=== PATIENT | female | born 1950 | race Caucasian/White ===

== ENCOUNTER 2016-08-17 11:27 | Outpatient (RCR) | payer MEDICARE ==
--- NOTE | 2016-09-14 08:05 | RADONC ---
RADIATION ONCOLOGY TREATMENT SUMMARY DATE: 09/13/2016 DIAGNOSIS: Left breast cancer. STAGE: 1A, [id number]. ECOG PERFORMANCE STATUS: 0. TREATMENT SUMMARY: Ms. 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 We treated the patient to her left breast for a total dose of 4005 cGy delivered in 15 fractions of 266.7 cGy each. The patient was treated over 20 elapsed days from 08/24/2016 through 09/13/2016. The patient was treated on the linear accelerator utilizing 3-D conformal technique with a combination of 6X of 18X photons. Ms. Ko tolerated her treatments quite well with no difficulties related to her radiation therapy. She was able complete therapy as prescribed without interruption. I have scheduled the patient to see me again in 1 month for further followup. She will also continue to be followed by her other physicians as well. cc: MD Azar Corona MD *REN Mccann
== END 2016-09-14 ==
LOC: M ONCR 11:27
PROVIDERS: ATTEND Radiology Radiation Oncology
DX: C50.412 Malignant neoplasm of upper-outer quadrant of left female breast (principal)

== ENCOUNTER → 2016-09-24 | Outpatient (REF) | payer MEDICARE ==
[2016-09-24 13:49] LABS: PERCENT SATURATION 36.8 % (13.2-37.4)
== END ==
LOC: M LAB REF 12:50
PROVIDERS: ATTEND Internal Medicine Medical Oncology
DX: C50.919 Malignant neoplasm of unspecified site of unspecified female breast (principal)

== ENCOUNTER → 2016-10-13 | Outpatient (CLI) | payer MEDICARE ==
--- NOTE | 2016-10-15 13:16 | RADONC ---
RADIATION ONCOLOGY FOLLOWUP NOTE DATE: 10/13/2016 CHART NUMBER: [id number] DIAGNOSIS: Left breast cancer. STAGE: IA, [id number]. ECOG PERFORMANCE STATUS: 0 FOLLOWUP NOTE: Adia Ko is a very pleasant, 66-year-old white female with the diagnosis of a stage IA, [id number] well-differentiated infiltrating ductal carcinoma of the left breast who is presenting to us today for routine followup visit 1 month post completion of external beam radiation therapy. The patient presents today reporting that she is doing quite well with no complaints at this time related to her radiation therapy or disease. She has no breast or bone pain. REVIEW OF SYSTEMS: The patient's review of systems is noncontributory. Denies nausea, vomiting, fevers, chills, night sweats, diplopia, headaches, anxiety or depression, anorexia, weight loss, visual disturbances, chest pain, urinary or bowel difficulties, bone pain, or neurological problems. PHYSICAL EXAMINATION: The patient is a well-developed, well-nourished, 66-year-old female, in no acute distress. HEENT exam is normocephalic, atraumatic. Extraocular movements are intact. There is no palpable cervical, supraclavicular, infraclavicular, axillary, or inguinal lymphadenopathy present. Lungs are clear to auscultation and percussion. Heart has a regular rate and rhythm. Abdomen is benign with no hepatosplenomegaly, masses, or tenderness. Breast examination reveals no masses or discharge bilaterally. Skeletal examination reveals no tenderness to pressure or percussion of the bony skeleton. Extremities reveal no clubbing, cyanosis, or edema. Neurologic exam is grossly intact, as is the remainder of the physical examination. ASSESSMENT: The patient is clinically DEIRDRE at this time and will be seen by us again in 6 months for further followup. She will also continue to be followed by her other physicians as well. cc: MD Azar Corona MD
== END ==
LOC: M ONCR 10:57
PROVIDERS: ATTEND Radiology Radiation Oncology
DX: C50.412 Malignant neoplasm of upper-outer quadrant of left female breast (principal)

== ENCOUNTER → 2018-11-02 | Outpatient (CLI) | payer MEDICARE ==
[~2018-11-02] MED LIST: ASPI1TAB PO; CALC600T60 PO; INCR1INH; IPRA0.00 NEB; LETR2.5T2 PO; LOSA50TA88 PO; PRED5TA PO; SYMB16INH INH; VENTAER IN; VERA24TASA PO
--- NOTE | 2018-11-02 13:25 | REP ---
Low-dose noncontrast chest CT screening study for lung cancer. History: Personal history of nicotine dependence. No comparison chest imaging. 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 The lungs are hyperinflated. There is mild pleuroparenchymal fibrosis in the lingula and right middle lobe anteriorly. No pleural effusion is seen. Emphysematous changes are noted in the upper lobes bilaterally. Vascular calcifications noted. There are surgical clips in the left axilla. There is diffuse skin thickening and some stromal thickening in the left breast. This patient has a history of prior left breast carcinoma. Impression: Lung RADS category II benign findings. Evidence of COPD. Repeat screening exam suggested 1 year. Electronically Signed by Chiki Galeano MD 11/02/2018 01:17 P
== END ==
LOC: M RAD 12:47
PROVIDERS: ATTEND Internal Medicine Medical Oncology
DX: Z12.2 Encounter for screening for malignant neoplasm of respiratory organs (principal); Z87.891 Personal history of nicotine dependence; J84.10 Pulmonary fibrosis, unspecified; Z85.3 Personal history of malignant neoplasm of breast

== ENCOUNTER → 2019-08-21 | Outpatient (REF) | payer MEDICARE ==
[~2019-08-21] MED LIST changes: -ASPI1TAB PO; +ASPI81TA26 PO
[2019-08-21 14:01] LABS: ALBUMIN 3.8 GM/DL (3.2-5.2); CALCIUM LEVEL 9.9 MG/DL (8.8-10.2); CREATININE FOR GFR 1.63 MG/DL (0.55-1.30); GLOMERULAR FILTRATION RATE 33.1 (>39); PHOSPHORUS LEVEL 4.3 MG/DL (2.5-4.9); POTASSIUM SERUM 4.3 MEQ/L (3.5-5.1)
== END ==
LOC: M LAB REF 12:42
PROVIDERS: ATTEND Nurse Practitioner Family
DX: N18.3 Chronic kidney disease, stage 3 (moderate) (principal)

== ENCOUNTER → 2019-12-06 | Outpatient (CLI) | payer MEDICARE ==
--- NOTE | 2019-12-06 14:14 | REP ---
LOW DOSE LUNG SCREENING CT: Low dose lung screen CT performed in the axial plane. No IV contrast was administered. COMPARISON: 11/06/2018. There are emphysematous changes bilaterally as well as scattered interstitial fibrotic scarring. No suspicious nodular opacity is seen. There is no consolidation. Calcified right hilar lymph nodes are present. The heart is normal in size. There is some calcification of the thoracic aorta without aneurysm. No mediastinal contour abnormality is seen. There are degenerative changes of the spine. Again noted is stromal thickening of the left breast diffusely, unchanged, patient has a history of left breast cancer. IMPRESSION: Lung RADS category 2 benign findings. Chronic changes as above. No suspicious nodular opacity. Followup exam recommended in 1 year. Electronically Signed by Shiv Dickerson MD 12/06/2019 02:45 P
== END ==
LOC: M RAD 12:13
PROVIDERS: ATTEND Internal Medicine Medical Oncology
DX: Z12.2 Encounter for screening for malignant neoplasm of respiratory organs (principal); Z87.891 Personal history of nicotine dependence; Z85.3 Personal history of malignant neoplasm of breast; I70.0 Atherosclerosis of aorta

== ENCOUNTER → 2019-12-20 | Outpatient (REF) | payer MEDICARE ==
[2019-12-20 17:30] LABS: ALBUMIN 3.8 GM/DL (3.2-5.2); BILIRUBIN,TOTAL 0.2 MG/DL (0.2-1.0); CALCIUM LEVEL 9.5 MG/DL (8.8-10.2); CREATININE FOR GFR 1.69 MG/DL (0.55-1.30); GLOMERULAR FILTRATION RATE 31.8 (>39); POTASSIUM SERUM 5.5 MEQ/L (3.5-5.1)
== END ==
LOC: M LAB REF 16:34
PROVIDERS: ATTEND Nurse Practitioner Family
DX: C50.919 Malignant neoplasm of unspecified site of unspecified female breast (principal)

== ENCOUNTER → 2020-04-23 | Outpatient (REF) | payer MEDICARE ==
[2020-04-23 19:38] LABS: PERCENT SATURATION 4.7 % (13.2-45.0)
== END ==
LOC: M LAB REF 16:42
PROVIDERS: ATTEND Nurse Practitioner Family
DX: D50.9 Iron deficiency anemia, unspecified (principal); N39.0 Urinary tract infection, site not specified

== ENCOUNTER 2020-05-02 11:44 | Outpatient (CLI) | payer MEDICARE ==
[~2020-05-02] VITALS: Ht 149.9 cm; Wt 47.7 kg
[~2020-05-02 11:44] MED LIST changes: +NS 1,000 ML IV SCH
[2020-05-02 12:00] VITALS: BP 155/71
[2020-05-02] MEDS ORDERED: NS IV ONE (12:00)
[2020-05-02] MEDS ORDERED: FERRIC CARBOXYMALTOSE IV ONE (12:00)
[2020-05-02 14:28] VITALS: BP 118/55
[2020-05-02 15:00] VITALS: BP 134/67
[2020-06-05] MEDS ORDERED: LETR2.5T2 PO (07:59)
== END 2020-05-02 15:00 | disposition home or self-care (01) ==
LOC: M INFU 11:44
PROVIDERS: ATTEND Internal Medicine Nephrology
DX: D50.9 Iron deficiency anemia, unspecified (principal)
CPT/HCPCS: 96365; 96366; J1439

== ENCOUNTER 2020-05-09 11:40 | Outpatient (CLI) | payer MEDICARE ==
[~2020-05-09] VITALS: Ht 175.3 cm; Wt 47.7 kg
[~2020-05-09 11:40] MED LIST changes: -NS 1,000 ML IV SCH
[2020-05-09] MEDS ORDERED: EPINEPHrine INJ 1 MG/ML 1ML AMP IM PRN (12:00)
[2020-05-09] MEDS ORDERED: NS 1,000 ML IV SCH (12:00)
[2020-05-09] MEDS ORDERED: NS IV ONE (12:00)
[2020-05-09] MEDS ORDERED: ALBUTEROL SULFATE 2.5 MG/0.5 ML INH NEB SOLN INH PRN (12:00)
[2020-05-09] MEDS ORDERED: diphenhydrAMINE 50MG/ML VIAL (J1200) IV PRN (12:00)
[2020-05-09] MEDS ORDERED: FERRIC CARBOXYMALTOSE IV ONE (12:00)
[2020-05-09] MEDS ORDERED: methylPREDNISolone 125MG 2ML VIAL IV PRN (12:00)
[2020-05-09 13:43] VITALS: BP 103/55
[2020-05-09 14:35] VITALS: BP 124/58
[2020-05-09 15:28] VITALS: BP 119/59
[2020-06-05] MEDS ORDERED: LETR2.5T2 PO (07:59)
== END 2020-05-09 15:30 | disposition home or self-care (01) ==
LOC: M INFU 11:40
PROVIDERS: ATTEND Internal Medicine Nephrology
DX: D50.9 Iron deficiency anemia, unspecified (principal)
CPT/HCPCS: 96365; 96366; J1439

== ENCOUNTER → 2020-12-24 | Outpatient (REF) | payer MEDICARE ==
[2020-12-24 17:50] LABS: PERCENT SATURATION 41.2 % (13.2-45.0)
== END ==
LOC: M LAB REF 16:53
PROVIDERS: ATTEND Nurse Practitioner Family
DX: D50.9 Iron deficiency anemia, unspecified (principal)

== ENCOUNTER 2021-08-30 09:57 | Inpatient (IN) | payer MEDICARE ==
[~2021-08-30] VITALS: Ht 149.9 cm; Wt 44.4 kg
[~2021-08-30 09:57] MED LIST changes: +ENOXAPARIN 30MG/0.3ML SYRINGE (J1650 PER 10MG) SC SCH; -INCR1INH; +INCR1INH INH; +LOSA50TA28 PO; -LOSA50TA88 PO; +SYMBICORT 160/4.5MCG INHALER 6GM INH SCH; -VENTAER IN; +VENTAER INH; +VERA240T65 PO; -VERA24TASA PO
[2021-08-30] MEDS ORDERED: methylPREDNISolone 125MG 2ML VIAL IV ONE (10:15)
[2021-08-30 10:25] LABS: ABG BASE EXCESS 9.1 (-2.0-2.0); ABG HCO3 35.7 MEQ/L (22.0-26.0); ABG PARTIAL PRESSURE O2 114.7 mmHg (75.0-100.0); ABG STANDARD HCO3 32.8 MEQ/L (22.0-26.0); ABG TOTAL CO2 37.6 MEQ/L (23.0-31.0); ABG pH (ARTERIAL) 7.382 UNITS (7.350-7.450)
[2021-08-30 10:28] LABS: ABG PARTIAL PRESSURE CO2 61.4 mmHg (35.0-45.0)
[2021-08-30 11:15] LABS: BASO # 0.1 10^3/uL (0.0-0.2); BASO % 0.9 % (0.0-1.0); EOS # 0.6 10^3/uL (0.0-0.5); EOS % 3.7 % (0.0-3.0); HEMATOCRIT 33.6 % (36.0-47.0); HEMOGLOBIN 10.3 g/dl (12.0-15.5); LYMPH # 0.4 10^3/uL (1.5-5.0); LYMPH % 2.6 % (24.0-44.0); MEAN CORPUSCULAR HGB CONC 30.7 g/dl (32.0-36.5); MEAN CORPUSCULAR VOLUME 101.2 fl (80.0-96.0); MONO # 0.3 10^3/uL (0.0-0.8); MONO % 2.1 % (2.0-8.0); NEUTROPHILS # 13.5 10^3/uL (1.5-8.5); NEUTROPHILS % 90.3 % (36.0-66.0); PLATELET COUNT, AUTOMATED 544 10^3/uL (150-450); RED BLOOD COUNT 3.32 10^6/uL (4.00-5.40); WHITE BLOOD COUNT 14.9 10^3/uL (4.0-10.0)
[2021-08-30 11:41] LABS: MB/CK RELATIVE INDEX 5.59 (< OR =4)
[2021-08-30] MEDS ORDERED: ASPIRIN 325 MG TAB PO ONE (11:55)
[2021-08-30 12:00] LABS: BILIRUBIN,DIRECT 0.1 MG/DL (0.0-0.2); BILIRUBIN,TOTAL 0.2 MG/DL (0.2-1.0); CALCIUM LEVEL 10.4 MG/DL (8.8-10.2); CREATININE FOR GFR 1.24 MG/DL (0.55-1.30); FREE T4 1.13 NG/DL (0.76-1.46); GLOMERULAR FILTRATION RATE 45.1 (>39); POTASSIUM SERUM 5.4 MEQ/L (3.5-5.1); THYROID STIMULATING HORMONE 0.882 uIU/ML (0.358-3.740)
[2021-08-30] MEDS ORDERED: ISOVUE-370 76% 100ML VIAL As Ordered ONE (12:14)
[2021-08-30 12:46] LABS: CK-MB VALUE MASS 7.4 NG/ML (<3.6); MB/CK RELATIVE INDEX 5.52 (< OR =4)
[2021-08-30] MEDS ORDERED: ALBUTEROL SULFATE 2.5 MG/0.5 ML INH NEB SOLN NEB PRN (13:15)
[2021-08-30] MEDS ORDERED: FUROSEMIDE 40MG/4ML VIAL (J1940) IV ONE (13:15)
[2021-08-30] MEDS ORDERED: IPRATROPIUM 0.5MG/ALBUTEROL 2.5MG INH SOL UD 3ML (DUONEB) NEB ONE (13:20)
[2021-08-30 13:57] LABS: INR 0.91; PARTIAL THROMBOPLASTIN TIME 29.7 SECONDS (25.9-37.0); PROTHROMBIN TIME 12.7 SECONDS (12.7-14.5)
[2021-08-30] MEDS ORDERED: ASPI81TA26 PO (14:04)
[2021-08-30] MEDS ORDERED: DOCU100C16 PO (14:06)
[2021-08-30] MEDS ORDERED: HOME MED LIST COMPLETE! XX SCH (14:10)
[2021-08-30] MEDS ORDERED: DOCUSATE SODIUM 100MG CAPSULE PO PRN (14:50)
[2021-08-30] MEDS ORDERED: NITROGLYCERIN 0.4 MG SUBL TABLET SL PRN (14:55)
[2021-08-30] MEDS ORDERED: MORPHINE 2 MG/ML 1ML VIAL (J2270) IV PRN (14:55)
[2021-08-30] MEDS ORDERED: LevoFLOXacin IV 500 MG in IV 1 EA IV ONE (15:10)
[2021-08-30] MEDS: IPRATROPIUM 0.5MG/ALBUTEROL 2.5MG INH SOL UD 3ML (DUONEB) NEB SCH ×2 (16:00→19:50)
[2021-08-30 16:10] VITALS: BP 116/59
[2021-08-30] MEDS ORDERED: LevoFLOXacin IV 750 MG in IV 1 EA IV SCH (17:00)
[2021-08-30] MEDS: methylPREDNISolone 125MG 2ML VIAL IV SCH (17:00)
[2021-08-30] MEDS: SYMBICORT 160/4.5MCG INHALER 6GM INH SCH (19:50)
[2021-08-30] MEDS ORDERED: SYMBICORT 160/4.5MCG INHALER 6GM INH SCH (20:00)
[2021-08-30] MEDS: ANALGESIC BALM CRM 3OZ TOP SCH (21:00)
[2021-08-30] MEDS ORDERED: COMBIVENT RESPIMAT 100-20MCG INHALER 4GM INH SCH (21:00)
[2021-08-30 22:10] VITALS: BP 103/59
[2021-08-31] MEDS: methylPREDNISolone 125MG 2ML VIAL IV SCH ×2 (01:07→08:41)
[2021-08-31] MEDS ORDERED: diphenhydrAMINE 25MG CAP PO ONE (02:55)
[2021-08-31] MEDS ORDERED: RAMELTEON 8 MG TAB (ROZEREM) PO PRN (02:55)
[2021-08-31] MEDS: ACETAMINOPHEN TAB 650MG DOSE (2X325MG) PO PRN ×3 (03:51→21:45)
[2021-08-31] MEDS ORDERED: NICOTINE 21MG/24HR 1 EA TRANSDERMAL TD SCH (05:00)
[2021-08-31 06:10] VITALS: BP 133/64
[2021-08-31 06:54] LABS: HEMATOCRIT 25.2 % (36.0-47.0); MEAN CORPUSCULAR HEMOGLOBIN 31.3 pg (27.0-33.0); MEAN CORPUSCULAR HGB CONC 32.1 g/dl (32.0-36.5); MEAN CORPUSCULAR VOLUME 97.3 fl (80.0-96.0); RED BLOOD COUNT 2.59 10^6/uL (4.00-5.40); WHITE BLOOD COUNT 9.9 10^3/uL (4.0-10.0)
[2021-08-31 07:01] LABS: HEMOGLOBIN 8.1 g/dl (12.0-15.5); PLATELET COUNT, AUTOMATED 426 10^3/uL (150-450)
[2021-08-31] MEDS: SYMBICORT 160/4.5MCG INHALER 6GM INH SCH ×2 (07:18→20:00)
[2021-08-31] MEDS: IPRATROPIUM 0.5MG/ALBUTEROL 2.5MG INH SOL UD 3ML (DUONEB) NEB SCH ×4 (07:19→20:00)
[2021-08-31 07:29] LABS: ALBUMIN 3.1 GM/DL (3.2-5.2); BILIRUBIN,TOTAL 0.2 MG/DL (0.2-1.0); CREATININE FOR GFR 1.5 MG/DL (0.55-1.30); GLOMERULAR FILTRATION RATE 36.2 (>39); POTASSIUM SERUM 4.9 MEQ/L (3.5-5.1); TOTAL PROTEIN 6.8 GM/DL (6.4-8.2)
[2021-08-31] MEDS: LEVALBUTEROL 1.25 MG/0.5 ML CONCENTRATE NEB NEB SCH ×3 (08:00→20:00)
[2021-08-31] MEDS: NICOTINE 7 MG/24 HR TRANSDERMAL TD SCH (08:40)
[2021-08-31] MEDS: ANALGESIC BALM CRM 3OZ TOP SCH ×2 (08:40→21:36)
[2021-08-31] MEDS: VERAPAMIL 120MG SR TAB PO SCH (08:41)
[2021-08-31] MEDS ORDERED: LevoFLOXacin IV 250 MG in IV 1 EA IV SCH (09:00)
[2021-08-31] MEDS ORDERED: PREVNAR 13 VACCINE SYRINGE IM ONE (09:00)
[2021-08-31] MEDS ORDERED: LOSARTAN 50MG TABLET PO SCH (09:00)
[2021-08-31] MEDS ORDERED: ASPIRIN 81MG ENTERIC TABLET PO SCH (09:00)
[2021-08-31 09:20] LABS: PERCENT SATURATION 7.4 % (13.2-45.0)
[2021-08-31] MEDS: LETROZOLE 2.5 MG TAB PO SCH (10:22)
[2021-08-31] MEDS ORDERED: LEVALBUTEROL 1.25 MG/0.5 ML CONCENTRATE NEB NEB PRN (10:45)
[2021-08-31] MEDS: NS 1,000 ML IV SCH (11:26)
[2021-08-31 14:00] VITALS: BP 100/55
[2021-08-31] MEDS ORDERED: methylPREDNISolone 125MG 2ML VIAL IV SCH (21:00)
[2021-08-31 22:00] VITALS: BP 111/63
[2021-09-01] MEDS: NS 1,000 ML IV SCH (00:13)
[2021-09-01] MEDS: LEVALBUTEROL 1.25 MG/0.5 ML CONCENTRATE NEB NEB SCH ×6 (01:46→20:00)
[2021-09-01] MEDS: traMADol 50 MG TAB PO PRN (03:22)
[2021-09-01 05:26] VITALS: BP 118/72
[2021-09-01 06:17] LABS: HEMATOCRIT 24.6 % (36.0-47.0); HEMOGLOBIN 7.7 g/dl (12.0-15.5); MEAN CORPUSCULAR HEMOGLOBIN 31.4 pg (27.0-33.0); MEAN CORPUSCULAR HGB CONC 31.3 g/dl (32.0-36.5); MEAN CORPUSCULAR VOLUME 100.4 fl (80.0-96.0); PLATELET COUNT, AUTOMATED 423 10^3/uL (150-450); RED BLOOD COUNT 2.45 10^6/uL (4.00-5.40); WHITE BLOOD COUNT 15.8 10^3/uL (4.0-10.0)
[2021-09-01 06:47] LABS: ALBUMIN 2.9 GM/DL (3.2-5.2); ALT/SGPT 16 U/L (12-78); BILIRUBIN,TOTAL < 0.1 MG/DL (0.2-1.0); BLOOD UREA NITROGEN 37 MG/DL (7-18); CALCIUM LEVEL 8.5 MG/DL (8.8-10.2); CARBON DIOXIDE LEVEL 32 MEQ/L (21-32); CHLORIDE LEVEL 100 MEQ/L (98-107); CREATININE FOR GFR 1.25 MG/DL (0.55-1.30); GLOMERULAR FILTRATION RATE 44.7 (>39); GLUCOSE, FASTING 104 MG/DL (70-100); POTASSIUM SERUM 5.5 MEQ/L (3.5-5.1); SODIUM LEVEL 135 MEQ/L (136-145); TOTAL PROTEIN 5.9 GM/DL (6.4-8.2)
[2021-09-01] MEDS: SYMBICORT 160/4.5MCG INHALER 6GM INH SCH ×2 (07:22→20:16)
[2021-09-01] MEDS: IPRATROPIUM 0.5MG/ALBUTEROL 2.5MG INH SOL UD 3ML (DUONEB) NEB SCH (07:23)
[2021-09-01] MEDS: IPRATROPIUM 0.02% SOLN 0.5MG 2.5ML NEB INH SCH ×4 (08:50→20:00)
[2021-09-01] MEDS ORDERED: predniSONE 20 MG TAB PO ONE (09:00)
[2021-09-01] MEDS: VERAPAMIL 120MG SR TAB PO SCH (09:00)
[2021-09-01] MEDS ORDERED: methylPREDNISolone 125MG 2ML VIAL IV ONE (09:00)
[2021-09-01] MEDS: LETROZOLE 2.5 MG TAB PO SCH (09:30)
[2021-09-01] MEDS: ANALGESIC BALM CRM 3OZ TOP SCH ×2 (09:30→21:33)
[2021-09-01] MEDS: NICOTINE 7 MG/24 HR TRANSDERMAL TD SCH (09:30)
[2021-09-01] MEDS: ACETAMINOPHEN TAB 650MG DOSE (2X325MG) PO PRN ×2 (09:32→21:33)
[2021-09-01 10:41] LABS: HEMATOCRIT 26.8 % (36.0-47.0); HEMOGLOBIN 8.2 g/dl (12.0-15.5)
[2021-09-01 11:50] LABS: FERRITIN 17 NG/ML (8-252); IRON (FE) 19 UG/DL (50-170); NT-PRO BNP 628 PG/ML (<125); PERCENT SATURATION 6.6 % (13.2-45.0); TOTAL IRON BINDING CAPACITY 286 UG/DL (250-450)
[2021-09-01 14:00] VITALS: BP 100/61
[2021-09-01] MEDS: methylPREDNISolone 40MG 1ML VIAL IV SCH ×2 (14:45→21:32)
[2021-09-01 17:13] LABS: HEMATOCRIT 26.7 % (36.0-47.0); HEMOGLOBIN 8.3 g/dl (12.0-15.5)
[2021-09-01 21:00] VITALS: BP 125/60
[2021-09-02] MEDS: IPRATROPIUM 0.02% SOLN 0.5MG 2.5ML NEB INH SCH ×7 (00:27→23:29)
[2021-09-02] MEDS: LEVALBUTEROL 1.25 MG/0.5 ML CONCENTRATE NEB NEB SCH ×3 (00:27→05:04)
[2021-09-02 00:31] LABS: HEMATOCRIT 24.3 % (36.0-47.0); HEMOGLOBIN 7.6 g/dl (12.0-15.5)
[2021-09-02] MEDS: methylPREDNISolone 40MG 1ML VIAL IV SCH ×4 (02:42→20:26)
[2021-09-02] MEDS: ALBUTEROL SULFATE 2.5 MG/0.5 ML INH NEB SOLN NEB PRN (04:57)
[2021-09-02 05:33] VITALS: BP 121/60
[2021-09-02 06:31] LABS: HEMOGLOBIN 8.1 g/dl (12.0-15.5); MEAN CORPUSCULAR HEMOGLOBIN 31.5 pg (27.0-33.0); MEAN CORPUSCULAR HGB CONC 31.2 g/dl (32.0-36.5); MEAN CORPUSCULAR VOLUME 101.2 fl (80.0-96.0); PLATELET COUNT, AUTOMATED 437 10^3/uL (150-450); RED BLOOD COUNT 2.57 10^6/uL (4.00-5.40); WHITE BLOOD COUNT 17.6 10^3/uL (4.0-10.0)
[2021-09-02 07:01] LABS: ALBUMIN 3.2 GM/DL (3.2-5.2); ALT/SGPT 17 U/L (12-78); BILIRUBIN,TOTAL < 0.1 MG/DL (0.2-1.0); BLOOD UREA NITROGEN 37 MG/DL (7-18); CALCIUM LEVEL 8.6 MG/DL (8.8-10.2); CARBON DIOXIDE LEVEL 32 MEQ/L (21-32); CHLORIDE LEVEL 101 MEQ/L (98-107); CREATININE FOR GFR 1.11 MG/DL (0.55-1.30); GLOMERULAR FILTRATION RATE 51.3 (>39); GLUCOSE, FASTING 111 MG/DL (70-100); POTASSIUM SERUM 5.5 MEQ/L (3.5-5.1); SODIUM LEVEL 135 MEQ/L (136-145); TOTAL PROTEIN 6.2 GM/DL (6.4-8.2)
[2021-09-02] MEDS: SYMBICORT 160/4.5MCG INHALER 6GM INH SCH ×2 (07:45→19:30)
[2021-09-02] MEDS ORDERED: ACETAMINOPHEN TAB 650MG DOSE (2X325MG) PO ONE (08:00)
[2021-09-02] MEDS ORDERED: FUROSEMIDE 20MG/2ML VIAL (J1940) IV ONE (08:00)
[2021-09-02] MEDS ORDERED: CALCIUM GLUCONATE 1,000 MG in D5W MINI-BAG PLUS 100 ML IV ONE (08:00)
[2021-09-02] MEDS ORDERED: diphenhydrAMINE 25MG CAP PO ONE (08:00)
[2021-09-02] MEDS: VERAPAMIL 120MG SR TAB PO SCH (09:00)
[2021-09-02] MEDS: ANALGESIC BALM CRM 3OZ TOP SCH ×2 (09:34→20:27)
[2021-09-02] MEDS: NICOTINE 7 MG/24 HR TRANSDERMAL TD SCH (09:38)
[2021-09-02] MEDS: LETROZOLE 2.5 MG TAB PO SCH (09:38)
[2021-09-02] MEDS ORDERED: SOD POLYSTYRENE SULFONATE SUSP 15 GM/60 ML UD PO ONE (10:00)
[2021-09-02] MEDS: ALBUTEROL SULFATE 2.5 MG/0.5 ML INH NEB SOLN NEB SCH ×3 (11:49→19:31)
[2021-09-02 12:23] LABS: HEMATOCRIT 28.1 % (36.0-47.0); HEMOGLOBIN 8.6 g/dl (12.0-15.5)
[2021-09-02 14:00] VITALS: BP 132/66
[2021-09-02 20:12] LABS: HEMATOCRIT 25.1 % (36.0-47.0); HEMOGLOBIN 7.7 g/dl (12.0-15.5)
[2021-09-02 22:00] VITALS: BP 124/65
[2021-09-03] MEDS: IPRATROPIUM 0.02% SOLN 0.5MG 2.5ML NEB INH SCH ×5 (03:04→22:09)
[2021-09-03] MEDS: methylPREDNISolone 40MG 1ML VIAL IV SCH (03:51)
[2021-09-03 05:59] VITALS: BP 132/89
[2021-09-03 06:08] LABS: HEMATOCRIT 26.9 % (36.0-47.0); MEAN CORPUSCULAR HEMOGLOBIN 30.5 pg (27.0-33.0); MEAN CORPUSCULAR HGB CONC 29.7 g/dl (32.0-36.5); MEAN CORPUSCULAR VOLUME 102.7 fl (80.0-96.0); PLATELET COUNT, AUTOMATED 409 10^3/uL (150-450); RED BLOOD COUNT 2.62 10^6/uL (4.00-5.40); WHITE BLOOD COUNT 13.9 10^3/uL (4.0-10.0)
[2021-09-03] MEDS: ACETAMINOPHEN TAB 650MG DOSE (2X325MG) PO PRN (06:08)
[2021-09-03 06:25] LABS: CALCIUM LEVEL 8.1 MG/DL (8.8-10.2); GLOMERULAR FILTRATION RATE 57.9 (>39); POTASSIUM SERUM 4.8 MEQ/L (3.5-5.1)
[2021-09-03] MEDS: ALBUTEROL SULFATE 2.5 MG/0.5 ML INH NEB SOLN NEB SCH ×3 (07:55→14:48)
[2021-09-03] MEDS: SYMBICORT 160/4.5MCG INHALER 6GM INH SCH ×2 (07:55→22:07)
[2021-09-03] MEDS ORDERED: methylPREDNISolone 125MG 2ML VIAL IV ONE (08:35)
[2021-09-03] MEDS: LETROZOLE 2.5 MG TAB PO SCH (08:45)
[2021-09-03] MEDS: NICOTINE 7 MG/24 HR TRANSDERMAL TD SCH (08:46)
[2021-09-03] MEDS: VERAPAMIL 120MG SR TAB PO SCH (08:47)
[2021-09-03] MEDS: traMADol 50 MG TAB PO PRN (08:47)
[2021-09-03] MEDS: ANALGESIC BALM CRM 3OZ TOP SCH ×2 (08:48→20:44)
[2021-09-03] MEDS: ALBUTEROL SULFATE 2.5 MG/0.5 ML INH NEB SOLN NEB PRN (09:12)
[2021-09-03] MEDS: PANTOPRAZOLE 40MG TAB (PROTONIX) PO SCH (09:48)
[2021-09-03] MEDS ORDERED: RIZATRIPTAN BENZOATE 10 MG TAB PO ONE (12:00)
[2021-09-03 14:00] VITALS: BP 138/75
[2021-09-03] MEDS: methylPREDNISolone 125MG 2ML VIAL IV SCH ×2 (14:09→20:43)
[2021-09-03 22:00] VITALS: BP 112/57
[2021-09-04 05:52] VITALS: BP 123/66
[2021-09-04] MEDS: IPRATROPIUM 0.02% SOLN 0.5MG 2.5ML NEB INH SCH ×7 (06:06→23:53)
[2021-09-04] MEDS: ALBUTEROL SULFATE 2.5 MG/0.5 ML INH NEB SOLN NEB SCH ×5 (06:06→19:26)
[2021-09-04 06:12] LABS: HEMATOCRIT 27.8 % (36.0-47.0); HEMOGLOBIN 8.4 g/dl (12.0-15.5); MEAN CORPUSCULAR HEMOGLOBIN 31.2 pg (27.0-33.0); MEAN CORPUSCULAR HGB CONC 30.2 g/dl (32.0-36.5); MEAN CORPUSCULAR VOLUME 103.3 fl (80.0-96.0); PLATELET COUNT, AUTOMATED 451 10^3/uL (150-450); RED BLOOD COUNT 2.69 10^6/uL (4.00-5.40); WHITE BLOOD COUNT 14.9 10^3/uL (4.0-10.0)
[2021-09-04] MEDS: methylPREDNISolone 125MG 2ML VIAL IV SCH (06:30)
[2021-09-04 06:42] LABS: CALCIUM LEVEL 8.3 MG/DL (8.8-10.2); CREATININE FOR GFR 1.03 MG/DL (0.55-1.30); GLOMERULAR FILTRATION RATE 55.9 (>39); POTASSIUM SERUM 4.8 MEQ/L (3.5-5.1)
[2021-09-04] MEDS: SYMBICORT 160/4.5MCG INHALER 6GM INH SCH ×2 (07:44→19:26)
[2021-09-04] MEDS ORDERED: PRED20TA PO ×2 (08:09→08:11)
[2021-09-04] MEDS ORDERED: NICO7PA TD (08:09)
[2021-09-04] MEDS ORDERED: PRED10TA2 PO (08:11)
[2021-09-04] MEDS: predniSONE 20 MG TAB PO SCH ×2 (09:58→21:20)
[2021-09-04] MEDS: PANTOPRAZOLE 40MG TAB (PROTONIX) PO SCH (09:58)
[2021-09-04] MEDS: LETROZOLE 2.5 MG TAB PO SCH (09:58)
[2021-09-04] MEDS: ANALGESIC BALM CRM 3OZ TOP SCH ×2 (09:59→21:21)
[2021-09-04] MEDS: VERAPAMIL 120MG SR TAB PO SCH (09:59)
[2021-09-04] MEDS: NICOTINE 7 MG/24 HR TRANSDERMAL TD SCH (09:59)
[2021-09-04 21:05] VITALS: BP 103/58
[2021-09-04] MEDS: ACETAMINOPHEN TAB 650MG DOSE (2X325MG) PO PRN (21:20)
[2021-09-05] MEDS: IPRATROPIUM 0.02% SOLN 0.5MG 2.5ML NEB INH SCH (03:50)
[2021-09-05 05:00] VITALS: BP 142/71
[2021-09-05 06:33] LABS: HEMATOCRIT 31.9 % (36.0-47.0); HEMOGLOBIN 9.5 g/dl (12.0-15.5); MEAN CORPUSCULAR HEMOGLOBIN 30.8 pg (27.0-33.0); MEAN CORPUSCULAR HGB CONC 29.8 g/dl (32.0-36.5); MEAN CORPUSCULAR VOLUME 103.6 fl (80.0-96.0); PLATELET COUNT, AUTOMATED 473 10^3/uL (150-450); RED BLOOD COUNT 3.08 10^6/uL (4.00-5.40); WHITE BLOOD COUNT 16.4 10^3/uL (4.0-10.0)
[2021-09-05 06:53] LABS: CALCIUM LEVEL 8.6 MG/DL (8.8-10.2); CREATININE FOR GFR 1.07 MG/DL (0.55-1.30); GLOMERULAR FILTRATION RATE 53.5 (>39); POTASSIUM SERUM 5.3 MEQ/L (3.5-5.1)
[2021-09-05] MEDS: ALBUTEROL SULFATE 2.5 MG/0.5 ML INH NEB SOLN NEB SCH (07:24)
[2021-09-05] MEDS: SYMBICORT 160/4.5MCG INHALER 6GM INH SCH (07:24)
[2021-09-05] MEDS: NICOTINE 7 MG/24 HR TRANSDERMAL TD SCH (07:57)
[2021-09-05] MEDS: predniSONE 20 MG TAB PO SCH (07:57)
[2021-09-05] MEDS: LETROZOLE 2.5 MG TAB PO SCH (07:57)
[2021-09-05 07:58] VITALS: BP 138/70
[2021-09-05] MEDS: PANTOPRAZOLE 40MG TAB (PROTONIX) PO SCH (07:58)
[2021-09-05] MEDS: VERAPAMIL 120MG SR TAB PO SCH (07:58)
[2021-09-05] MEDS: ANALGESIC BALM CRM 3OZ TOP SCH (07:59)
[2021-09-05] MEDS: ACETAMINOPHEN TAB 650MG DOSE (2X325MG) PO PRN (08:04)
== END 2021-09-05 11:05 | disposition home health service (06) | DRG 190 ==
LOC: EDBD 09:57 → M ED 09:57 → M ED INP 13:15 → ENRESERV 13:35 → M MSPAV 16:00
PROVIDERS: ADMIT Internal Medicine; ATTEND General Practice
DX: J44.1 Chronic obstructive pulmonary disease with (acute) exacerbation (principal); J96.21 Acute and chronic respiratory failure with hypoxia; N17.9 Acute kidney failure, unspecified; Z68.1 Body mass index [BMI] 19.9 or less, adult; R64 Cachexia; E46 Unspecified protein-calorie malnutrition; E87.5 Hyperkalemia; I10 Essential (primary) hypertension; Z85.3 Personal history of malignant neoplasm of breast; K21.9 Gastro-esophageal reflux disease without esophagitis; Z99.81 Dependence on supplemental oxygen; F17.200 Nicotine dependence, unspecified, uncomplicated; D50.9 Iron deficiency anemia, unspecified; Z90.49 Acquired absence of other specified parts of digestive tract; R62.7 Adult failure to thrive; I27.20 Pulmonary hypertension, unspecified; R07.89 Other chest pain; Z20.822 Contact with and (suspected) exposure to COVID-19; Z79.82 Long term (current) use of aspirin; Z79.52 Long term (current) use of systemic steroids; Z79.899 Other long term (current) drug therapy